=== PATIENT | male | born 1985 | race Two or more races ===

== ENCOUNTER 2017-10-29 11:10 | Inpatient (IN) | payer SELFPAY ==
[~2017-10-29] VITALS: Ht 172.7 cm; Wt 68.0 kg
--- NOTE | 2017-10-29 11:15 | NUR ---
PRESENTS TO ER C/O ABDOMINAL PAIN, NAUSEA, VOMITING SINCE 0300AM. A/OX 4. BREATHING EVEN AND UNLABORED. NO SOB, NAD, VITALS STABLE. SAFETY AND COMFORT MEASURES IN PLACE. AWAITING MD ORDERS.
--- NOTE | 2017-10-29 11:35 | NUR ---
FELI DEGRASSE AT BEDSIDE FOR EVAL.
--- NOTE | 2017-10-29 11:49 | NUR ---
US TECH AT BEDSIDE
[2017-10-29 11:54] LABS: BASOPHILS # (AUTO) 0.1 /CMM (0.0-0.2); BASOPHILS % (AUTO) 0.6 % (0.0-2.0); EOSINOPHILS # (AUTO) 0.1 /CMM (0.0-0.7); EOSINOPHILS % (AUTO) 0.4 % (0.0-6.0); HEMATOCRIT 45 % (39-51); HEMOGLOBIN 15.6 g/dL (13.5-17.5); LYMPHOCYTES # (AUTO) 1.3 /CMM (0.8-4.8); LYMPHOCYTES % (AUTO) 8.9 % (20.0-44.0); MEAN CORPUSCULAR HEMOGLOBIN 30 PG (26.0-33.0); MEAN CORPUSCULAR HGB CONC 34 g/dl (31.0-36.0); MEAN CORPUSCULAR VOLUME 87 fL (80-96); MONOCYTES # (AUTO) 0.6 /CMM (0.1-1.30); MONOCYTES % (AUTO) 4.1 % (2.0-12.0); PLATELET COUNT (AUTO) 377 /CMM (150-450); RDW COEFFICIENT OF VARIATION 12.6 (11.5-15.0); WHITE BLOOD COUNT (AUTO) 15.1 K/uL (4.3-11.0)
[2017-10-29 12:08] LABS: CALCIUM, SERUM 8.8 mg/dL (8.5-10.1); CREATININE 0.6 mg/dL (0.6-1.3); POTASSIUM 3.5 mmol/L (3.5-5.1)
[2017-10-29 12:14] LABS: ALBUMIN 3.8 g/dL (3.4-5.0); BILIRUBIN,DIRECT 0.1 mg/dL (0.0-0.2); BILIRUBIN,TOTAL 0.4 mg/dL (0.2-1.0); TOTAL PROTEIN, SERUM 6.9 g/dL (6.4-8.2)
[2017-10-29] MEDS ORDERED: IV NS 0.9% 250 ML IV ONE (12:16)
[2017-10-29] MEDS ORDERED: IOHEXOL-300 100 ML VIAL IV ONE (12:16)
[2017-10-29] MEDS ORDERED: CT SWABBABLE VALVE TRANS SET 1 EA INFUS.SET MC ONE (12:17)
--- NOTE | 2017-10-29 12:37 | NUR ---
NEW IV STARTED ON RAC, 18G.
--- NOTE | 2017-10-29 12:45 | NUR ---
patient taken to ct via stretcher.
--- NOTE | 2017-10-29 12:57 | NUR ---
PATIENT RETURNED FROM CT IN STABLE CONDITION.
[2017-10-29] MEDS ORDERED: PIPERACILLIN /TAZOBACTAM 3.375 G in IV D5W 50 ML IV ONE (13:30)
--- NOTE | 2017-10-29 13:50 | NUR ---
MS 206-2
--- NOTE | 2017-10-29 13:54 | NUR ---
REPORT GIVEN TO [facility] FOR BRICE UPON
--- NOTE | 2017-10-29 14:24 | NUR ---
PATIENT TRANSPORTED TO [facility] VIA WHEELCHAIR. [facility] TO PROVIDE BRICE.
[2017-10-29 14:37] VITALS: BP 112/64
[2017-10-29] MEDS ORDERED: MAGNESIUM HYDROXIDE 30 ML UDC PO PRN (15:00)
[2017-10-29] MEDS ORDERED: ACETAMINOPHEN 325 MG TABLET PO PRN (15:00)
[2017-10-29] MEDS ORDERED: MAG HYDROX/AL HYDROX/SIMETH 30 ML UDC PO PRN (15:00)
[2017-10-29] MEDS ORDERED: ONDANSETRON HCL/PF 4 MG/2 ML VIAL IVP PRN (15:00)
[2017-10-29] MEDS ORDERED: FENTANYL PF 100MCG/2ML AMPUL IV PRN (15:00)
[2017-10-29] MEDS: IV NS 0.9% 1,000 ML IV PRN (15:14)
[2017-10-29] MEDS: PANTOPRAZOLE 40 MG VIAL IV SCH (15:19)
[2017-10-29 16:00] VITALS: BP 112/64
[2017-10-29 20:00] VITALS: BP 107/71
[2017-10-29] MEDS: PIPERACILLIN /TAZOBACTAM 3.375 G in IV D5W 50 ML IV SCH (20:44)
[2017-10-29] MEDS ORDERED: PIPERACILLIN /TAZOBACTAM 3.375 G in IV D5W 100 ML IV SCH (21:00)
[2017-10-30] MEDS: PIPERACILLIN /TAZOBACTAM 3.375 G in IV D5W 50 ML IV SCH ×2 (00:39→05:50)
--- NOTE | 2017-10-30 06:50 | NUR ---
MS RN NOTES AWAKE & RESPONSIVE. NOT IN ANY DISTRESS. NO SOB NOTED. DENIES ANY PAIN OR DISCOMFORT AT THIS TIME. WITH IVF INFUSING WELL. CALL LIGHT WITHIN REACH. BED IN LOWEST POSITION. SR UP X2 FOR SAFETY. WILL ENDORSE TO NEXT SHIFT.
[2017-10-30 07:18] LABS: BASOPHILS % (AUTO) 0.1 % (0.0-2.0); EOSINOPHILS # (AUTO) 0.2 /CMM (0.0-0.7); EOSINOPHILS % (AUTO) 3.8 % (0.0-6.0); HEMATOCRIT 43 % (39-51); HEMOGLOBIN 14.7 g/dL (13.5-17.5); LYMPHOCYTES # (AUTO) 1.8 /CMM (0.8-4.8); LYMPHOCYTES % (AUTO) 31.6 % (20.0-44.0); MEAN CORPUSCULAR HEMOGLOBIN 30 PG (26.0-33.0); MEAN CORPUSCULAR HGB CONC 34 g/dl (31.0-36.0); MEAN CORPUSCULAR VOLUME 89 fL (80-96); MONOCYTES # (AUTO) 0.5 /CMM (0.1-1.30); MONOCYTES % (AUTO) 9.2 % (2.0-12.0); NEUTROPHILS # (AUTO) 3.2 /CMM (1.8-8.9); NEUTROPHILS % (AUTO) 55.3 % (43.0-81.0); PLATELET COUNT (AUTO) 344 /CMM (150-450); RDW COEFFICIENT OF VARIATION 12.4 (11.5-15.0); RED BLOOD CELL COUNT(AUTO) 4.84 MIL/uL (4.5-6.0); WHITE BLOOD COUNT (AUTO) 5.7 K/uL (4.3-11.0)
--- NOTE | 2017-10-30 07:30 | NUR ---
MS/RN Patient received Patient received from night supervisor. A/O X4, vital signs within normal range, no fever noted. Denies any abdominal pain or discomfort. Safety measures in place, call light within reach. Will continue to monitor and ensure safety.
[2017-10-30 07:33] LABS: ALBUMIN 3.3 g/dL (3.4-5.0); BILIRUBIN,DIRECT 0.1 mg/dL (0.0-0.2); BILIRUBIN,TOTAL 0.5 mg/dL (0.2-1.0); CALCIUM, SERUM 8.5 mg/dL (8.5-10.1); CREATININE 0.6 mg/dL (0.6-1.3); MAGNESIUM 2.5 mg/dL (1.8-2.4); PHOSPHORUS 3.5 mg/dL (2.5-4.9); TOTAL PROTEIN, SERUM 6.1 g/dL (6.4-8.2)
[2017-10-30 08:00] VITALS: BP 105/67
[2017-10-30] MEDS: PANTOPRAZOLE 40 MG VIAL IV SCH (08:57)
[2017-10-30] MEDS: IV NS 0.9% 1,000 ML IV PRN (08:57)
--- NOTE | 2017-10-30 09:31 | NUR ---
MS/RN Medications Morning medications administered as ordered.
--- NOTE | 2017-10-30 12:45 | NUR ---
MS/RN Expressing wanting to leave Patient expressing that he is now without pain and want to go home. Informed patient that the [employer] would be coming to make rounds and he could address his fears at that time and then possibly be discharged otherwise he would have to sign out against medical advice. Again stating that he was no longer having any pain and that he wanted to eat. Patient stated that he understood and was willing to accept any consequences that may result in leaving. Heplock and name bands removed.
--- NOTE | 2017-10-30 12:58 | NUR ---
MS/RN SPARKLE Patient left hospital against medical advice.
== END 2017-10-30 13:00 | disposition left against medical advice (07) | DRG 446 ==
LOC: ER 11:13 → MEDSG2 14:07
PROVIDERS: ADMIT Nurse Practitioner Acute Care; ATTEND Nurse Practitioner Acute Care
DX: K80.00 Calculus of gallbladder with acute cholecystitis without obstruction (principal); D72.829 Elevated white blood cell count, unspecified; F17.210 Nicotine dependence, cigarettes, uncomplicated
CPT/HCPCS: 36415; 76705-TC; 80048-TC; 80076-TC; 83690-TC; 83735-TC; 84100-TC; 85025-TC; 87040-TC; 87081-TC; A4606; C9113; J2543; J7030; J7050; J7060; Q9967; Z7610

== ENCOUNTER 2017-11-10 06:46 | Emergency (ER) | payer SELFPAY ==
[~2017-11-10] VITALS: Ht 177.8 cm; Wt 69.9 kg
[2017-11-10] MEDS ORDERED: ONDANSETRON HCL/PF 4 MG/2 ML VIAL IVP ONE (07:00)
[2017-11-10] MEDS ORDERED: MORPHINE SULFATE INJ 2 MG/ML DISP.SYRIN IV ONE (07:00)
--- NOTE | 2017-11-10 07:02 | NUR ---
BIB FATHER C/O MID ABD PAIN RADIATING TO BACK SINCE 3AM. PT DENIES NVD. PT AOX3 RR EVEN AND UNLABORED. NO SOB NOTED. NAD NOTED. NO NVD AT THIS TIME. PT GOWNED AND PLACED ON MONITOR, DR MCDONALD AT BEDSIDE FOR EVAL.
[2017-11-10] MEDS ORDERED: ONDANSETRON HCL/PF 4 MG/2 ML VIAL ONE (07:03)
[2017-11-10] MEDS ORDERED: MORPHINE SULFATE INJ 4 MG/ML DISP.SYRIN ONE ×2 (07:03→07:34)
[2017-11-10 07:20] LABS: BASOPHILS # (AUTO) 0.1 /CMM (0.0-0.2); BASOPHILS % (AUTO) 0.7 % (0.0-2.0); EOSINOPHILS % (AUTO) 2.7 % (0.0-6.0); HEMATOCRIT 48 % (39-51); HEMOGLOBIN 16.3 g/dL (13.5-17.5); LYMPHOCYTES # (AUTO) 1.8 /CMM (0.8-4.8); LYMPHOCYTES % (AUTO) 17.4 % (20.0-44.0); MEAN CORPUSCULAR HGB CONC 34 g/dl (31.0-36.0); MEAN CORPUSCULAR VOLUME 88 fL (80-96); MONOCYTES # (AUTO) 0.7 /CMM (0.1-1.30); MONOCYTES % (AUTO) 7.3 % (2.0-12.0); NEUTROPHILS # (AUTO) 7.3 /CMM (1.8-8.9); NEUTROPHILS % (AUTO) 71.9 % (43.0-81.0); PLATELET COUNT (AUTO) 447 /CMM (150-450); RDW COEFFICIENT OF VARIATION 13.1 (11.5-15.0); RED BLOOD CELL COUNT(AUTO) 5.43 MIL/uL (4.5-6.0); WHITE BLOOD COUNT (AUTO) 10.1 K/uL (4.3-11.0)
--- NOTE | 2017-11-10 07:28 | NUR ---
REPORT GIVEN TO HERMINIA YE FOR BRICE.
[2017-11-10] MEDS ORDERED: KETOROLAC TROMETHAMINE INJ 30 MG/ML VIAL IV ONE (07:30)
[2017-11-10] MEDS ORDERED: MORPHINE SULFATE INJ 10 MG/ML DISP.SYRIN IV ONE (07:30)
[2017-11-10] MEDS ORDERED: KETOROLAC TROMETHAMINE INJ 30 MG/ML VIAL ONE (07:34)
--- NOTE | 2017-11-10 07:45 | NUR ---
PT CONTINUES TO REPORT SEVERE ABD PAIN; MEDICATED ORDERED. VSS.
[2017-11-10 07:46] LABS: CALCIUM, SERUM 9.5 mg/dL (8.5-10.1); CREATININE 0.8 mg/dL (0.6-1.3); POTASSIUM 3.3 mmol/L (3.5-5.1)
[2017-11-10 07:55] LABS: ALBUMIN 3.9 g/dL (3.4-5.0); BILIRUBIN,DIRECT 0.1 mg/dL (0.0-0.2); BILIRUBIN,TOTAL 0.5 mg/dL (0.2-1.0); TOTAL PROTEIN, SERUM 7.4 g/dL (6.4-8.2)
--- NOTE | 2017-11-10 08:15 | NUR ---
IV removed. Catheter intact and site benign. Pressure and 4x4 applied to site. No bleeding noted. Patient discharged to home in stable condition. Written and verbal after care instructions given. Patient verbalizes understanding of instruction. INSTRUCTED NOT TO DRIVE. AMBULATORY WITH STEADY GAIT. PROVIDED WITH WORK NOTE PER PT REQUEST.
[2017-11-10 08:22] VITALS: BP 110/68
== END 2017-11-10 08:15 | disposition home or self-care (01) ==
LOC: ER 06:46
DX: K80.50 Calculus of bile duct without cholangitis or cholecystitis without obstruction (principal); Z60.2 Problems related to living alone
CPT/HCPCS: 36415; 80048-TC; 80076-TC; 83690-TC; 85025-TC; A4606; J1885; J2270; J2405; Z7610

== ENCOUNTER 2020-06-30 17:00 | Emergency (ER) | payer SELFPAY ==
[~2020-06-30] VITALS: Ht 167.6 cm; Wt 68.5 kg
--- NOTE | 2020-06-30 19:01 | NUR ---
TOOK OVER PT CARE. PT BIBSELF C/O EPIGASTRIC PAIN SINCE LAST NIGHT. PLACED IN BED 14, AWAITING ORDERS. VSS.
[2020-06-30] MEDS ORDERED: LIDOCAINE VISCOUS 2% UD 15 ML UDC MM ONE (19:30)
[2020-06-30] MEDS ORDERED: MAG HYDROX/AL HYDROX/SIMETH 30 ML UDC PO ONE (19:30)
[2020-06-30] MEDS ORDERED: LIDOCAINE VISCOUS 2% UD 15 ML UDC ONE (19:31)
[2020-06-30] MEDS ORDERED: MAG HYDROX/AL HYDROX/SIMETH 30 ML UDC ONE (19:31)
--- NOTE | 2020-06-30 19:42 | NUR ---
LINE ESTABLISHED LAC 20G, BLOOD COLLECTED, SENT TO LAB. URINE COLLECTED WELL, SENT TO LAB.
[2020-06-30 19:47] LABS: BASOPHILS % (AUTO) 0.6 % (0.0-2.0); HEMATOCRIT 54 % (39-51); HEMOGLOBIN 18.3 g/dL (13.5-17.5); MONOCYTES # (AUTO) 0.8 /CMM (0.1-1.30)
[2020-06-30 19:51] LABS: BASOPHILS # (AUTO) 0.1 /CMM (0.0-0.2); EOSINOPHILS % (AUTO) 0.9 % (0.0-6.0); LYMPHOCYTES # (AUTO) 1.4 /CMM (0.8-4.8); LYMPHOCYTES % (AUTO) 15.7 % (20.0-44.0); MEAN CORPUSCULAR HGB CONC 34 g/dl (31.0-36.0); MEAN CORPUSCULAR VOLUME 94 fL (80-96); MONOCYTES % (AUTO) 9.2 % (2.0-12.0); NEUTROPHILS # (AUTO) 6.4 /CMM (1.8-8.9); NEUTROPHILS % (AUTO) 73.6 % (43.0-81.0); PLATELET COUNT (AUTO) 406 /CMM (150-450); RED BLOOD CELL COUNT(AUTO) 5.78 MIL/uL (4.5-6.0); WHITE BLOOD COUNT (AUTO) 8.7 K/uL (4.3-11.0)
[2020-06-30 19:52] LABS: BILIRUBIN,URINE SMALL (NEGATIVE); BLOOD, URINE Trace-intact Ery/uL (NEGATIVE); COLOR,URINE YELLOW (YELLOW); LEUKOCYTE ESTERASE ,URINE Negative (NEGATIVE); NITRITE, URINE Negative (NEGATIVE); PROTEIN,URINE 30 mg/dl (NEGATIVE); UGLUCOSE Negative (NEGATIVE)
[2020-06-30 19:54] LABS: PH,URINE >9.0 (5.0-8.0)
[2020-06-30 19:55] LABS: CALCIUM, SERUM 9.4 mg/dL (8.5-10.1); CREATININE 0.9 mg/dL (0.6-1.3); POTASSIUM 3.9 mmol/L (3.5-5.1)
[2020-06-30 20:01] LABS: BILIRUBIN,DIRECT 0.2 mg/dL (0.0-0.2); BILIRUBIN,TOTAL 0.8 mg/dL (0.2-1.0); TOTAL PROTEIN, SERUM 7.7 g/dL (6.4-8.2)
[2020-06-30 20:13] LABS: BACTERIA,URINE Rare /HPF (None Seen); SQUAMOUS EPITHELIAL CELL,UR 0-2 /HPF (None Seen); WBC,URINE 0-2 /HPF (0-3)
[2020-06-30 20:15] LABS: MUCUS,URINE Rare /LPF (None Seen)
[2020-06-30 20:16] LABS: URINE AMORPHOUS PHOSPHATES Rare /HPF (None Seen)
[2020-06-30 20:24] VITALS: BP 121/81
--- NOTE | 2020-06-30 20:24 | NUR ---
IV removed. Catheter intact and site benign. Pressure and 4x4 applied to site. No bleeding noted.
--- NOTE | 2020-06-30 20:24 | NUR ---
Patient discharged to home in stable condition. Written and verbal after care instructions given. Patient verbalizes understanding of instruction. Pt ambulated out of E.D. Denies pain. MD spoke to PT regarding taking meds.
[2020-06-30 21:01] LABS: EOSINOPHILS % (MANUAL) 1 % (0-4); LYMPHOCYTES % (MANUAL) 10 % (16-48); MONOCYTES % (MANUAL) 9 % (0-11.0); NEUTROPHILS % (MANUAL) 79 (42-76); REACTIVE LYMPHOCYTES 1 % (0-0)
== END 2020-06-30 20:25 | disposition home or self-care (01) ==
LOC: ER 17:01
DX: K80.50 Calculus of bile duct without cholangitis or cholecystitis without obstruction (principal); K29.60 Other gastritis without bleeding; Z60.2 Problems related to living alone
CPT/HCPCS: 36415; 76705-TC; 80048-TC; 80076-TC; 81001; 83690-TC; 85025-TC; 85730-TC